=== PATIENT | female | born 1955 | race Native Hawaiian/Other Pacific Islander ===

== ENCOUNTER 2021-03-06 22:25 | Emergency (ER) | payer OTHER ==
[~2021-03-06] VITALS: Ht 162.6 cm; Wt 120.2 kg
[2021-03-06] MEDS ORDERED: LIPITOR20 MG PO (23:19)
[2021-03-06] MEDS ORDERED: GLIM4TAB PO (23:20)
[2021-03-06] MEDS ORDERED: HYDR25TA60 PO (23:20)
[2021-03-06] MEDS ORDERED: COZAAR100 MG PO (23:21)
[2021-03-06] MEDS ORDERED: METOPROLOL 100 MG (23:22)
[2021-03-06] MEDS ORDERED: METF500T PO (23:22)
[2021-03-06 23:23] LABS: PLATELET COUNT 320 K/uL (152-353)
[2021-03-06 23:55] LABS: POTASSIUM 3.1 mmol/L (3.6-5.2)
[2021-03-07 01:41] VITALS: BP 163/86; TEMP 98.7
== END 2021-03-07 01:41 | disposition home or self-care (01) ==
LOC: ED 22:25
PROVIDERS: Hospitalist
DX: N20.0 Calculus of kidney (principal); R11.2 Nausea with vomiting, unspecified; E11.65 Type 2 diabetes mellitus with hyperglycemia; N13.8 Other obstructive and reflux uropathy; Z87.442 Personal history of urinary calculi
CPT/HCPCS: 80053; 81000; 83690; 85027; 87086; 87088; 96360; 96361; 96365; 96375; 99284; J0696; J1170; J1815; J1885; J2405

== ENCOUNTER 2021-04-03 19:42 | Emergency (ER) | payer OTHER ==
[~2021-04-03] VITALS: Ht 162.6 cm; Wt 120.2 kg
[~2021-04-03 19:42] MED LIST: COZAAR100 MG PO; GLIM4TAB PO; HYDR25TA60 PO; LIPITOR20 MG PO; METF500T PO; METOPROLOL 100 MG
[2021-04-03 20:31] LABS: POTASSIUM 3.1 mmol/L (3.6-5.2)
[2021-04-03 20:35] LABS: PLATELET COUNT 328 K/uL (152-353)
[2021-04-03 21:36] VITALS: BP 194/97; TEMP 98.2
== END 2021-04-03 21:53 | disposition home or self-care (01) ==
LOC: ED 19:42
PROVIDERS: Hospitalist
DX: N20.0 Calculus of kidney (principal); Z87.442 Personal history of urinary calculi
CPT/HCPCS: 36415; 80053; 81000; 83690; 85027; 96360; 96365; 96367; 96372; 99284; J0696; J1170; J1885; J2405; J2550